=== PATIENT | female | born 1965 | race Caucasian/White ===

== ENCOUNTER → 2016-09-11 | Outpatient (CLI) | payer OTHER ==
--- NOTE | 2016-09-11 17:18 | DX ---
Right Foot - Three views Indication: Plantar plate repair and Arron osteotomy. Technique: AP, oblique, and lateral views. Comparison: Right foot series dated July 17, 2016 and March 01, 2016. Findings: The distal 2nd metatarsal osteotomy appears to have completely healed. The two cortical s crews remain well seated. A small marginal erosion along the lateral aspect of the 2nd metatarsal he ad is unchanged. New marginal erosions of subchondral cysts have developed in the base of the proxim al phalanx of the 2nd toe. The 2nd metatarsophalangeal joint is otherwise well preserved. Impression: 1. Healed 2nd metatarsal osteotomy with well-seated cortical screws. 2. Developing small degenerative erosions in the base of the proximal phalanx 2nd toe.
== END ==
LOC: BMCIMAGING 15:05
PROVIDERS: ATTEND Podiatrist Foot & Ankle Surgery
DX: Z09 Encounter for follow-up examination after completed treatment for conditions other than malignant neoplasm (principal); M85.671 Other cyst of bone, right ankle and foot

== ENCOUNTER → 2016-09-27 | Outpatient (CLI) | payer OTHER | LOC: FIMAGING 07:33 | DX: Z12.31 Encounter for screening mammogram for malignant neoplasm of breast (principal); Z80.3 Family history of malignant neoplasm of breast | CPT/HCPCS: G0202 ==

== ENCOUNTER → 2017-10-22 | Outpatient (CLI) | payer OTHER | LOC: FIMAGING 08:33 | DX: Z12.31 Encounter for screening mammogram for malignant neoplasm of breast (principal) ==